=== PATIENT | male | born 1955 ===

== ENCOUNTER 2017-02-26 07:22 | Day surgery (SDC) | payer OTHER ==
[2017-02-26 07:53] VITALS: BMI 23.6
[2017-02-26] MEDS ORDERED: Simethicone 40 mg/0.6 ml Liquid (30 ml) ONE (08:58)
[2017-02-26] MEDS ORDERED: Propofol 10 mg/ml Inj (20 ML) ONE ×4 (09:17→10:34)
[2017-02-26] MEDS ORDERED: Lactated Ringer's 500 ML IV ONE ×4 (09:18→10:18)
[2017-02-26 10:31] VITALS: TEMP 97.6
[2017-02-26 10:57] VITALS: O2SAT 100
[2017-02-26 11:31] VITALS: RESP 12
[2017-02-26 12:08] VITALS: BP 120/76; PULSE 74
== END 2017-02-26 11:40 | disposition home or self-care (01) ==
LOC: C.ENDO 07:22
PROVIDERS: ATTEND Internal Medicine Gastroenterology
DX: D12.2 Benign neoplasm of ascending colon (principal); D12.3 Benign neoplasm of transverse colon; D12.4 Benign neoplasm of descending colon; D12.5 Benign neoplasm of sigmoid colon; D12.7 Benign neoplasm of rectosigmoid junction; K64.8 Other hemorrhoids
CPT/HCPCS: 45385; 88305; J2704; J7120

== ENCOUNTER 2017-09-03 07:18 | Day surgery (SDC) | payer OTHER ==
[2017-09-03 07:54] VITALS: BMI 25.2
[2017-09-03] MEDS ORDERED: Lactated Ringer's 1,000 ML IV ONE (10:02)
[2017-09-03] MEDS ORDERED: Propofol 10 mg/ml Inj (20 ML) ONE ×3 (10:03→11:09)
[2017-09-03] MEDS ORDERED: Lidocaine Hydrochloride 5 ML INJ ONE (10:03)
[2017-09-03] MEDS ORDERED: Lactated Ringer's 500 ML IV SCH (10:15)
[2017-09-03] MEDS ORDERED: Simethicone 40 mg/0.6 ml Liquid (30 ml) ONE (10:31)
[2017-09-03 11:50] VITALS: TEMP 97
[2017-09-03 13:27] VITALS: BP 120/78; PULSE 75; RESP 17; O2SAT 98
== END 2017-09-03 12:21 | disposition home or self-care (01) ==
LOC: C.ENDO 07:18
PROVIDERS: ATTEND Internal Medicine Gastroenterology
DX: Z12.11 Encounter for screening for malignant neoplasm of colon (principal); D12.3 Benign neoplasm of transverse colon; D12.0 Benign neoplasm of cecum; D12.4 Benign neoplasm of descending colon; D12.8 Benign neoplasm of rectum; K64.8 Other hemorrhoids; Z86.010 Personal history of colon polyps
CPT/HCPCS: 45380; 88305; J2704; J7120

== ENCOUNTER 2018-02-25 08:47 | Day surgery (SDC) | payer OTHER ==
[2018-02-25 09:34] VITALS: TEMP 97.7
[2018-02-25] MEDS ORDERED: Lactated Ringer's 1,000 ML IV ONE (11:30)
[2018-02-25] MEDS ORDERED: Midazolam 2 MG/2 ML VIAL ONE (11:35)
[2018-02-25] MEDS ORDERED: Propofol 10 mg/ml Inj (20 ML) ONE (11:36)
[2018-02-25] MEDS ORDERED: Lidocaine Hydrochloride 5 ML INJ ONE (11:36)
--- NOTE | 2018-02-25 12:06 | CP.SDSHP ---
Same Day Surgery H & P - History Proposed Procedure: colonoscopy and EGD Pre-Op Diagnosis: gerd, hx of colon polyps - Previous Medical/Surgical History Cardiac: Hypertension Neuro: Seizure Disorder - Allergies Allergies: Allergies pollen Allergy (Uncoded 09/03/17 07:54) CONGESTION - Physical Exam General Appearance: alert and oriented x 3, no acute distress Vital Signs: Vital Signs 02/25/18 09:26 Temperature 97.7 F Pulse Rate 81 Respiratory 19 Rate Blood Pressure 109/76 O2 Sat by Pulse 98 Oximetry Mental Status: Alert & Oriented x3 Neuro: WNL Heart: WNL Lungs: WNL GI: WNL - Impression Impression: gastritis, gerd, hx of colon polyps Pt. Evaluated Today:Candidate for Anesthesia & Procedure: Yes - Date & Time Date: 02/25/18 Time: 10:00 Short Stay Discharge - Short Stay Discharge Admitting Diagnosis/Reason for Visit: GERD / COLON POLYP / POLYP ADENOMA Disposition: HOME/ ROUTINE
[2018-02-25 13:23] VITALS: BP 117/73; PULSE 68; RESP 18; O2SAT 100
== END 2018-02-25 13:19 | disposition home or self-care (01) ==
LOC: C.ENDO 08:47
PROVIDERS: ATTEND Internal Medicine Gastroenterology
DX: K31.7 Polyp of stomach and duodenum (principal); K21.9 Gastro-esophageal reflux disease without esophagitis; K29.70 Gastritis, unspecified, without bleeding; K64.8 Other hemorrhoids
CPT/HCPCS: 43239; 45378; 88305; 88312; 88342; J2250; J2704; J3010; J7120

== ENCOUNTER 2018-12-17 08:12 | Outpatient (CLI) | payer OTHER | END 2018-12-17 08:13 | disposition home or self-care (01) | LOC: C.LAB 08:12 | DX: N39.0 Urinary tract infection, site not specified (principal); E78.5 Hyperlipidemia, unspecified; Z12.5 Encounter for screening for malignant neoplasm of prostate ==